=== PATIENT | female | born 1970 | race Two or more races ===

== ENCOUNTER 2018-02-04 17:46 | Emergency (ER) | payer SELFPAY | END 2018-02-04 20:10 | disposition home or self-care (01) | LOC: ER 17:46 | DX: S92.351A Displaced fracture of fifth metatarsal bone, right foot, initial encounter for closed fracture (principal); Z90.49 Acquired absence of other specified parts of digestive tract; W18.39XA Other fall on same level, initial encounter; Y93.89 Activity, other specified; Y92.89 Other specified places as the place of occurrence of the external cause; Y99.8 Other external cause status | CPT/HCPCS: 73630; 99284 ==